=== PATIENT | female | born 1980 | race Caucasian/White ===

== ENCOUNTER 2018-11-08 09:01 | Day surgery (SDC) | payer OTHER ==
--- NOTE | 2018-11-08 07:47 | ANESTHESIA ---
Pre-Anesthesia VS, & Labs - Diagnosis Pelvic pain - Procedure Laparacopic oophorectomy Height 5 ft 1 in Weight (kg) 52.16 kg - NPO >8 hours - Is Patient ?: No - Lab Results Lab results reviewed: Yes Home Medications and Allergies Home Medications: Ambulatory Orders Albuterol Sulfate [Proair Respiclick] 90 mcg IH 11/04/18 Fluticasone [Flonase] 1 sprays ALINA BID 11/04/18 Fluticasone/Salmeterol [Advair 250-50 Diskus] 1 each IH 11/04/18 Meclizine HCl 12.5 mg PO PRN 11/04/18 Norethindrone-E.estradiol-Iron [Loestrin Fe 1.5-30 Tablet] 1 each PO 11/04/18 Cetirizine [ZyrTEC] 1 PRN 11/08/18 Albuterol Sulfate [Proair Respiclick] 90 mcg IH 11/04/18 Fluticasone [Flonase] 1 sprays ALINA BID 11/04/18 Fluticasone/Salmeterol [Advair 250-50 Diskus] 1 each IH 11/04/18 Loratadine [Claritin] 10 mg PO 11/04/18 Meclizine HCl 12.5 mg PO PRN 11/04/18 Norethindrone-E.estradiol-Iron [Loestrin Fe 1.5-30 Tablet] 1 each PO 11/04/18 Allergies/Adverse Reactions: Allergies Allergy/AdvReac Type Severity Reaction Status Date / Time No Known Drug Allergies Allergy Verified 11/04/18 11:15 Anes History & Medical History - Anesthetic History Anesthesia Complications: reports: No previous complications Family history of Anesthesia Complications: Denies Family history of Malignant Hyperthermia: Denies - Medical History Cardiovascular: reports: None Pulmonary: reports: Asthma Gastrointestinal: reports: GERD, Other Urinary: reports: None Neuro: reports: None Musculoskeletal: reports: None Endocrine/Autoimmune: reports: None Blood Disorders: reports: None Skin: reports: None Smoking Status: Never smoker Psychosocial: reports: No issues indicated - Surgical History Eyes Ears Nose Throat (EENT): Other Gynecologic: Hysterectomy Exam General: Alert Dental: WNL Neck Mobility: Normal Mallampati classification: I Thyromental Distance: greater than 6 cm Respiratory: Lungs clear, Normal breath sounds Cardiovascular: Regular rate Mental/Cognitive Status: Alert/Oriented X3 Cognitive Status: Within normal limits Plan Anesthesia Type: General Consent for Procedure(s) Verified and Reviewed: Yes Code Status: Attempt Resuscitation ASA classification: 1-Healthy patient Is this case an emergency?: No
[2018-11-08] MEDS ORDERED: LACTATED RINGERS 1,000 ML IV ONE ×2 (09:35→13:10)
[2018-11-08] MEDS ORDERED: BUPIVACAINE 0.5%-EPI 1:200000 PF 30 ML VIAL ONE (09:58)
[2018-11-08] MEDS ORDERED: NEOSTIGMINE 1 MG/1 ML 10 ML MDV IVP ONE (13:06)
[2018-11-08] MEDS ORDERED: LIDOCAINE-MPF 2% 5 ML VIAL IM ONE (13:06)
[2018-11-08] MEDS ORDERED: MIDAZOLAM 2 MG/2 ML VIAL IVP ONE (13:06)
[2018-11-08] MEDS ORDERED: ONDANSETRON 4 MG/2 ML VIAL IVP ONE (13:06)
[2018-11-08] MEDS ORDERED: fentaNYL 100 MCG/2 ML VIAL IVP ONE (13:06)
[2018-11-08] MEDS ORDERED: PROPOFOL 200 MG/20 ML VIAL IVP ONE (13:06)
[2018-11-08] MEDS ORDERED: ROCURONIUM 50 MG/5 ML VIAL IVP ONE (13:06)
[2018-11-08] MEDS ORDERED: GLYCOPYRROLATE 1 MG/5 ML VIAL IVP ONE (13:06)
[2018-11-08] MEDS ORDERED: HYDROmorphone 1 MG/ML CARPUJECT IVP ONE (13:06)
[2018-11-08] MEDS ORDERED: KETOROLAC 30 MG/ML VIAL IVP ONE (13:06)
[2018-11-08] MEDS ORDERED: DEXAMETHASONE 4 MG/ML VIAL IVP ONE (13:06)
[2018-11-08] MEDS ORDERED: BUPIVACAINE 0.5%-EPI 1:200000 PF 30 ML VIAL SUBQ ONE (13:29)
[2018-11-08] MEDS ORDERED: ONDANSETRON 4 MG/2 ML VIAL IVP PRN (14:11)
[2018-11-08] MEDS ORDERED: HYDROcod/ACETAM 10 MG/325 MG TABLET PO PRN (14:11)
--- NOTE | 2018-11-08 14:14 | OPERATIVE REPORT ---
Operative Report - General Planned Procedure: Laparoscopic bilateral oophorectomies Pre-Op Diagnosis: Pelvic pain, suspected endometriosis Procedure Performed: Laparoscopic bilateral oophorectomies, lysis of adhesions Post Op Diagnosis: Same as above - Procedure Note Primary Surgeon: Dr. Judi Rodarte Secondary Surgeon: Dr. Ky Galarza Anesthesia Provider: SHEEBA Jose Anesthesia Technique: General ET tube, Local Pathology: Right ovary, left ovary IV Fluids (mL): 1,000 Estimated Blood Loss (mL): 25 Urine Output (mL): 250 Complications: None - Other Other Information/Narrative: Indications: The patient is a 38-year-old 3 para 2 abortus 1 female here for laparoscopic bilateral oophorectomies. Surgery is for definitive management of pelvic pain that has improved with Depo-Lupron. This medication was started as a trial to see if ovarian suppression would be helpful for her chronic pelvic pain and irritable bowel symptoms.The risks, benefits, limitations, alternatives, and expectations of surgery were discussed. The consent was reviewed and signed prior to surgery. Findings: Uterus and cervix are surgically absent absent. The laparoscopic findings were notable for multiple adhesions of bowel and epiploica into the pelvis, along the cuff, and to the bilateral ovaries. A thin portion of the sigmoid colon was also adherent to the right ovary. The ureters were visualized bilaterally and noted to be clear of the dissection area. A focus of endometriosis was noted overlying the left ureter. This was left in situ given its location. Procedure: The patient was taken to the operating room, where general endotracheal anesthesia was administered without difficulty. She was then positioned in the low dorsal lithotomy position with her lower extremities in Yellow Fin stirrups. Vagina, perineum, and abdomen were then prepped and draped in a sterile fashion, and a ravi catheter was placed. Procedure Time-Out was then performed. A sponge stick was placed into the vagina for counter-pressure on the vaginal cuff as needed. Attention was then turned to the laparoscopy. 0.25% Marcaine with epinephrine, was injected infraumbilically, then a 7-mm horizontal skin incision made. A Verrees needle was then inserted through the anterior layers of the abdominal wall with saline drop test suggesting intraperitoneal placement. Carbon dioxide gas insufflation was then performed with appropriate opening pressures noted. Once 2 L of gas was instilled, a 0-degree, 5 mm laparoscope was inserted into a 5 mm trocar and passed through the anterior layers of the abdominal wall using Optiview technique. The abdomen was visualized, then 2 additional ports placed at the right and left lower quadrants, first instilling local anesthetic then placing 5 mm ports. The patient was placed into Trendelenberg and bowel swept out of the cul-de-sac. Adhesions were dissected using blunt dissection, PlasmaKinetic, and Endoshears with cautery. The omentum and epiploica were freed from the vaginal cuff and the left pelvic sidewall.The left ovary was visualized and swept anteriorly. The left ureter was visualized deep within the pelvis. The left infundibulopelvic ligament was then cross-clamped, cauterized, and cut using the PlasmaKinetic. Additional tissue dissection was performed with the PlasmaKinetic as needed, the left ovary from the left pelvic sidewall. The ovarian vessels appeared hemostatic, and Bovie cautery was applied at the site of the adhesiolysis as needed to achieve hemostasis. Attention was then turned to the right ovary. Here the ovary was palpable but not visualized. The right sidewal peritoneum just anterior and superior to the right ovarian vessels was grasped and tented up. For dissection purposes and removal of the ovaries, a fourth trocar was placed into the abdomen. This was inserted suprapubically after instillation of quarter percent Marcaine with epi nephrine. Here a 12 mm port was placed for later insertion of the Endo Catch bag. Using the [place] graspers, the lateral peritoneum was grasped and tented up. Using EndoShears, the peritoneum was cauterized and incised, taking care to avoid any injury to the underlying vessels. The adhesed tissue over the ovary was gently dissected using a combination of Bovie dissection and cautery with the PlasmaKinetic. At the area of the sigmoid colon dissection, sharp curettage with the Endo Durga was performed, staying close to the ovary and taking care to avoid any injury to the bowel. Of note the general surgeon on duty, Dr. Mcdonald, observed this portion of the surgery and agreed with the dissection without any concern for the bowel dissection. Once the sigmoid colon was dissected off the ovary, the ovary was grasped and pulled medially. The ureter on the right was observed and noted to be inferior to the dissection. The right infundibulopelvic ligament was then cross-clamped, cauterized, and cut using the PlasmaKinetic. Staying close to the ovarian tissue, additional adhesions and tissue at the right pelvic sidewall was cauterized and cut, freeing the right ovary from the right pelvic sidewall. The Endo Catch bag was then placed through the 12 mm suprapubic port. Both ovaries were placed within the bag and brought to the level of the skin. These were easily removed from the abdomen at this time. The operative sites were then visualized and noted to be hemostatic. At this point the procedure was deemed complete. The gas was allowed to escape, and the trocars removed. The suprapubic incision was closed at the level of the fascia using 0 Vicryl.The skin of all four laparoscopy incisions was then closed with 4-0 monocryl in a subcuticular fashion followed by Dermabond. The sponge stick was then removed from the vagina. The patient was then replaced supine, awakened, extubated, and transferred to the PACU in stable condition. There were no complications. Sponge, lap, and needle count were correct x 3.
[2018-11-08] MEDS ORDERED: HYDROmorphone 0.5 MG/0.5 ML SYRINGE ONE (14:24)
[2018-11-08] MEDS ORDERED: ACETAMINOPHEN 1,000 MG/100 ML 100 ML IV ONE (14:48)
[2018-11-08] MEDS ORDERED: HYDROcod/ACETAM 10 MG/325 MG TABLET ONE (14:49)
[2018-11-08] MEDS ORDERED: ONDANSETRON 4 MG/2 ML VIAL ONE (15:03)
[2018-11-08 15:43] VITALS: BP 103/67
[2018-11-08] MEDS ORDERED: SCOPOLAMINE PATCH TOP SCH (16:00)
== END 2018-11-08 09:02 | disposition home or self-care (01) ==
LOC: SDS 09:01
PROVIDERS: ATTEND Obstetrics & Gynecology
PROC: 0UT24ZZ Resection of Bilateral Ovaries, Percutaneous Endoscopic Approach (ICD-10-PCS; principal; 2018-11-08 10:15)
DX: R10.2 Pelvic and perineal pain (principal); N80.8 Other endometriosis
CPT/HCPCS: 58661; A9270; J0131; J1170; J3490; J7120

== ENCOUNTER 2019-11-12 08:34 | Emergency (ER) | payer OTHER ==
[2019-11-12 08:51] VITALS: BP 123/95
[2019-11-12] MEDS ORDERED: CHERRY SYRUP 10 ML UDC PO ONE (09:20)
[2019-11-12] MEDS ORDERED: DEXAMETHASONE 10 MG/ML VIAL PO STA (09:20)
--- NOTE | 2019-11-12 10:01 | XRAY Report ---
Reason: cough right sided rhonchi Procedure Date: 11/12/2019 Accession Number: [id number] / [id number] Procedure: XR - Chest 2 View X-Ray CPT Code: 12338 Final Report FULL RESULT: EXAM: CHEST RADIOGRAPHY EXAM DATE: 11/12/2019 09:38 AM. CLINICAL HISTORY: Cough right sided rhonchi. COMPARISON: None. TECHNIQUE: 2 views. FINDINGS: Lungs/Pleura: No focal opacities evident. No pleural effusion. No pneumothorax. Normal volumes. Mediastinum: Heart and mediastinal contours are unremarkable. Other: None. IMPRESSION: Normal 2-view chest radiography. RADIA
--- NOTE | 2019-11-12 10:03 | ED Physician Documentation ---
PD HPI URI - Stated complaint Stated Complaint: COLD SX - Chief complaint Chief Complaint: Fever - History obtained from History obtained from: Patient - History of Present Illness Timing - onset: How many days ago (3) Timing duration: Days (3) Timing details: Gradual onset, Still present Associated symptoms: Fever, Nasal congestion, Rhinorrhea, Sore throat, Dry cough Contributing factors: Sick contact Improves by: Rest, Medication Worsened by: Activity Similar symptoms before: Diagnosis (URI) Recently seen: Not recently seen - Additional information Additional information: 39-year-old female with a son who was sick with otitis as become sick herself with cough congestion and fever. She was waiting her cold out when the fever hit and is up to 103. She has sore throat associated with this as well. 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 HEENT: Other - Present Medications Home Medications: Ambulatory Orders Medication Instructions Recorded Confirmed Albuterol Sulfate [Proair 90 mcg IH 11/04/18 Respiclick] Fluticasone [Flonase] 1 sprays ALINA BID PRN 11/04/18 11/08/18 Fluticasone/Salmeterol [Advair 1 each IH 11/04/18 250-50 Diskus] Meclizine HCl 12.5 mg PO PRN 11/04/18 Norethindrone-E.estradiol-Iron 1 each PO 11/04/18 [Loestrin Fe 1.5-30 Tablet] Cetirizine [ZyrTEC] 1 PRN 11/08/18 Cefdinir 300 mg PO BID #20 capsule 11/12/19 - Allergies Allergies/Adverse Reactions: Allergies Allergy/AdvReac Type Severity Reaction Status Date / Time No Known Drug Allergies Allergy Verified 11/04/18 11:15 - Social History Does the pt smoke?: No Smoking Status: Never smoker PD ED PE NORMAL - Vitals Vital signs reviewed: Yes (febrile and tachy ) - General General: Alert and oriented X 3, No acute distress, Well developed/nourished - HEENT HEENT: Atraumatic, PERRL, EOMI, Ears normal, Other (dry mucous membranes ) - Neck Neck: Supple, no meningeal sign, No bony TTP - Cardiac Cardiac: No murmur, Other (tachy to 110) - Respiratory Respiratory: No respiratory distress, Other (rhonchi in the right base repeatable ) - Abdomen Abdomen: Soft, Non tender - Back Back: No CVA TTP, No spinal TTP - Derm Derm: Normal color, Warm and dry, No rash - Extremities Extremities: No deformity, No edema - Neuro Neuro: Alert and oriented X 3, 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, No motor deficit, No sensory deficit, Normal speech Eye Opening: Spontaneous Motor: Obeys Commands Verbal: Oriented GCS Score: 15 - Psych Psych: Normal mood, Normal affect Results - Vitals Vitals: Vital Signs - 24 hr 11/12/19 08:47 Temperature 38.0 C H Heart Rate 117 H Respiratory 18 Rate Blood Pressure 123/95 H O2 Saturation 100 Oxygen O2 Source Room air - Rads (name of study) chest 2 Radiology: Prelim report reviewed (Impression: Normal two-view chest radiography.), EMP read indepedently, See rad report PD MEDICAL DECISION MAKING - ED course Complexity details: reviewed results, re-evaluated patient, considered differential, d/w patient, d/w family ED course: 39 y/o female with URI has rhonchi on exam. Given decadron here and we will put her on some cefdinir as her son is sick with similar and has OM. Departure - Departure Disposition: 01 Home, Self Care Clinical Impression: URI (upper respiratory infection) Qualifiers: URI type: unspecified URI Qualified Code(s): J06.9 - Acute upper respiratory infection, unspecified Condition: Stable Instructions: ED Upper Resp Infec Abx Tx Follow-Up: SKY MCDONNELL DO [Primary Care Provider] - Prescriptions: Cefdinir 300 mg PO BID #20 capsule
== END 2019-11-12 10:59 | disposition home or self-care (01) ==
LOC: ED 08:34
DX: J06.9 Acute upper respiratory infection, unspecified (principal); J45.909 Unspecified asthma, uncomplicated
CPT/HCPCS: 71046; 99281; 99283; A9270